=== PATIENT | male | born 1980 | race Caucasian/White ===

== ENCOUNTER 2016-08-05 12:53 | Emergency (ER) | payer BC ==
--- NOTE | 2016-08-05 15:57 | ED ---
Throat Pain/Nasal Congestion - HPI Summary HPI Summary: Patient presents with redness of his medial right sclera that he awoke with this AM after scratching his eye 3 days ago. The eye didn't bother him too much up until this AM. He denies drainage, itchiness, vision changes or DELEON. - History of Current Complaint Chief Complaint: EDEyeProblem Time Seen by Provider: 08/05/16 14:31 Hx Obtained From: Patient Onset/Duration: Gradual Onset Severity: Moderate Associated Signs And Symptoms: Positive: Negative Cough: None - Allergies/Home Medications Allergies/Adverse Reactions: Allergies Allergy/AdvReac Type Severity Reaction Status Date / Time No Known Allergies Allergy Verified 08/05/16 13:04 PMH/Surg Hx/FS Hx/Imm Hx Previously Healthy: Yes Infectious Disease History: No Infectious Disease History: Denies: Traveled Outside the [place] in Last 30 Days - Family History Known Family History: Positive: None - Social History Occupation: Employed Full-time Lives: With Family Alcohol Use: None Substance Use Type: Reports: None Smoking Status (MU): Never Smoked Tobacco Review of Systems Negative: Fever Positive: Erythema - medial right sclera. Negative: Photophobia, Blurred Vision , Diplopia, Drainage Negative: Sore Throat, Ear Ache All Other Systems Reviewed And Are Negative: Yes Physical Exam Triage Information Reviewed: Yes Vital Signs On Initial Exam: Initial Vitals Temp Pulse Resp BP Pulse Ox 98.0 F 62 16 158/84 100 08/05/16 13:02 08/05/16 13:02 08/05/16 13:02 08/05/16 13:02 08/05/16 13:02 Vital Signs Reviewed: Yes Appearance: Positive: Well-Appearing, No Pain Distress, Obese Skin: Positive: Warm, Skin Color Reflects Adequate Perfusion, Dry, Soft Head/Face: Positive: Normal Head/Face Inspection Eyes: Positive: EOMI, KEVON, Conjunctiva Inflammed - medial right ENT: Positive: Hearing grossly normal, Pharynx normal, TMs normal Neck: Positive: Supple, Nontender, No Lymphadenopathy Respiratory/Lung Sounds: Positive: Breath Sounds Present Cardiovascular: Positive: RRR Musculoskeletal: Negative: Edema Left, Edema Right Neurological: Positive: Sensory/Motor Intact, Alert, Oriented to Person Place, Time, NV Bundle Intact Distally Psychiatric: Positive: Affect/Mood Appropriate AVPU Assessment: Alert Diagnostics - Vital Signs Vital Signs Temp Pulse Resp BP Pulse Ox 08/05/16 15:23 98.0 F 62 16 158/84 100 08/05/16 13:02 98.0 F 62 16 158/84 100 - Laboratory Lab Statement: Any lab studies that have been ordered have been reviewed, and results considered in the medical decision making process. EENT Course/Dx - Differential Diagnoses Differential Diagnoses: Abrasion, Allergic Rhinitis, Conjunctivitis, Corneal Abrasion, Detached Retina, Keratitis, Penetrating Injury, Temporal Arteritis, Uveitis - Diagnoses Provider Diagnoses: Redness of eye, right Discharge - Discharge Plan Condition: Stable Disposition: HOME Prescriptions: Azelastine 0.05% (OPHTH)(NF) [Optivar 0.05% (NF)] 1 drop RIGHT EYE BID #1 btl Ketorolac Tromethamine (Ophth) [Acuvail] 0.45 % OP QID #1 bottle Referrals: Sofiya Lubin MD [Primary Care Provider] - oPrter Del Toro MD [Medical Doctor] - Additional Instructions: Please call Dr. Del Toro's office for an appointment in the next 24 hours. Use the drops provided as directed and take ibuprofen 600mg three times daily with meals for the next 3-5 days to decrease pain and swelling. Return to the emergency department if symptoms worsen.
[2016-08-05 16:06] VITALS: BP 150/58
== END 2016-08-05 16:04 | disposition home or self-care (01) ==
LOC: ED 12:53
DX: H57.8 Other specified disorders of eye and adnexa (principal)
CPT/HCPCS: 99282